=== PATIENT | female | born 1955 | race Caucasian/White ===

== ENCOUNTER → 2021-02-09 11:33 | Outpatient (CLI) | payer BC, SELFPAY ==
--- NOTE | ~2021-02-09 | XR_ITS ---
EXAMINATION: XR hand LT min 3V INDICATION: Left hand pain, initial encounter TECHNIQUE: Three views of the left hand are obtained. COMPARISON: None available FINDINGS: There is an acute, traumatic, closed, oblique fracture at the palmar base of the first dist al phalanx which extends to the interphalangeal joint and involves greater than 50% of the articular surface. No additional acute osseous findings are evident. There is moderate osteoarthritis at the fi rst carpometacarpal joint. Mild to moderate osteoarthritis is noted in multiple interphalangeal joint s. IMPRESSION: 1. Acute fracture at the palmar base of the first distal phalanx involving greater than 50% of the ar ticular surface. Reviewed, dictated and finalized at location A. IMPRESSION: 1. Acute fracture at the palmar base of the first distal phalanx involving grea ter than 50% of the articular surface.
--- NOTE | ~2021-02-09 | XR_ITS ---
EXAMINATION: XR facial bones min 3V INDICATION: Right-sided facial pain and bruising TECHNIQUE: Four views of the facial bones are obtained on five radiographs. COMPARISON: None available FINDINGS: No definite facial bone fracture is identified. The paranasal sinuses appear to be well aer ated. The soft tissues are unremarkable. The orbits appear to be intact. IMPRESSION: 1. No definite facial fracture identified although sensitivity of radiographs is low. If there is hig h clinical concern for facial fracture, further evaluation with facial CT would be recommended. Reviewed, dictated and finalized at location A. IMPRESSION: 1. No definite facial fracture identified although sensitivity of radiographs i s low. If there is high clinical concern for facial fracture, further evaluatio n with facial CT would be recommended.
== END ==
PROVIDERS: PCP Nurse Practitioner; Visit Provider Nurse Practitioner
DX: M79.642 Pain in left hand (principal); S00.83XA Contusion of other part of head, initial encounter; S62.92XA Unspecified fracture of left hand, initial encounter for closed fracture
CPT/HCPCS: 70150; 73130

== ENCOUNTER → 2021-11-23 14:01 | Outpatient (CLI) | payer MEDICARE, SELFPAY ==
--- NOTE | ~2021-11-23 | MM_ITS ---
EXAMINATION: MM screening miryam BI w christophe HISTORY: Screening TECHNIQUE: Craniocaudal and mediolateral oblique 3-D tomosynthesis images were obtained and synthetic 2-D images were generated. CAD analysis was submitted and interpreted. COMPARISON: No prior mammogram is available for comparison at this institution. BREAST PARENCHYMAL COMPOSITION: There are scattered areas of fibroglandular density. FINDINGS: There is no evidence of suspicious mass, calcification, or architectural distortion to sugg est malignancy in either breast. There has been no suspicious interval change. IMPRESSION: 1. No mammographic evidence of malignancy. 2. Recommend routine screening mammography in one year. BI-RADS Category 1: Negative Reviewed, dictated and finalized at location A.
== END ==
PROVIDERS: PCP Nurse Practitioner; Visit Provider Nurse Practitioner
DX: Z12.31 Encounter for screening mammogram for malignant neoplasm of breast (principal)
CPT/HCPCS: 77063; 77067

== ENCOUNTER 2022-01-22 08:09 | Outpatient (CLI) | payer MEDICARE, SELFPAY ==
--- NOTE | ~2022-01-22 | CT_ITS ---
EXAMINATION: CT abdomen w con INDICATION: Liver mass TECHNIQUE: Computed tomographic images of the abdomen were obtained after the administration of 100 c c of Omnipaque 300 intravenous contrast. The dose-length product (DLP) was 293.10 mGy-cm. Automated e xposure control and iterative reconstruction technique were employed. COMPARISON: 06/20/2014, 10/04/2012 FINDINGS: The lung bases are clear. The heart size is normal. There is a 1.9 x 1.5 cm hypoattenuating mass of liver segment BOBBI which is slightly decreased in size since the comparison examination. Ther e has been no suspicious interval change. Small cysts of the liver are again noted. The spleen, pancr eas, gallbladder, and adrenal glands are normal. Cysts of the kidneys measure up to 7 mm on the right . There is severe lumbar spondylosis. IMPRESSION: 1. Liver mass with slight decrease in size, consistent with a benign mass. No new or suspicious liver mass identified. Reviewed, dictated and finalized at location B. IMPRESSION: 1. Liver mass with slight decrease in size, consistent with a benign mass. No n ew or suspicious liver mass identified.
[2022-01-22 08:29] LABS: Estimated Glomerular Filt Rate > 60
== END 2022-01-22 08:10 | disposition home or self-care (01) ==
PROVIDERS: PCP Nurse Practitioner; Visit Provider Nurse Practitioner
DX: R16.0 Hepatomegaly, not elsewhere classified (principal)
CPT/HCPCS: 74160; Q9967

== ENCOUNTER 2022-03-08 09:30 | Outpatient (RCR) | payer MEDICARE, SELFPAY ==
--- NOTE | 2022-01-13 10:09 | PTOPEVAL ---
PHYSICAL THERAPY INITIAL EVALUATION. Thank you for referring Tisha Cedeno to [facility].? The patient is scheduled to be seen for therapy?1x in 2 weeks. Please review, sign, date and return this plan of care FRANCISCO. I agree with and certify that the following plan of care is medically necessary. Referring Physician Date Attending Provider: Allison Cruz NP *PT Outpatient Evaluation Start: 01/13/22 Evaluation Information Diagnosis lito chronic knee pain, L shoulder/elbow pain Onset 10 year, ~4 months Subjective Information Pt states ~10 years ago she Query Text:As Reported By Patient/ was told she needs a knee Family replacement but was told she needs to put it off as long as she can. She states just recently the knees have impacted her function. Pt states she used to always sleep on her left side, and for a couple of weeks she could not do this because of the pain. She states for a couple of weeks she really lost her function, d/t pain. She states this has improved to where it is not as painful but she still feels a deep pain in the arm. Currently she has elbow pain (medially) and this increases with lifting heavy loads. Pt states she started taking Naproxen on Tuesday and has had progressively decreased pain since. Pain Assessment Left Elbow(s) Reported Pain Level 0 Pain Description Sharp Pain Frequency Acute,Intermittent Lowest Pain Intensity 0 Greatest Pain Intensity 8 Pain Aggravating Factors Lifting Left Shoulder(s) Reported Pain Level 0 Pain Description Aching Pain Radiation Left Elbow Pain Frequency Acute,Intermittent Lowest Pain Intensity 0 Greatest Pain Intensity 7 Pain Aggravating Factors Lifting,Supine Upper Extremity Range of Motion Gross Upper Extremity Range of Motion lito shoulder flexion ~145 Comments lito shoulder abduction ~165 lito elbow flexion ~140 lito wrist flexion with elbow
--- NOTE | 2022-01-26 09:43 | PTOPEVAL ---
PHYSICAL THERAPY PROGRESS REPORT AND UPDATED PLAN OF CARE. Thank you for referring Tisha Cedeno to [facility].? The patient is scheduled to be seen for therapy? 1-2x/week for 4 weeks. Please review, sign, date and return this plan of care FRANCISCO. I agree with and certify that the following plan of care is medically necessary. Referring Physician Date Attending Provider: Allison Cruz NP Evaluation Information Diagnosis lito chronic knee pain, L shoulder/elbow pain Onset 10 year, ~4 months Subjective Information Pt states her shoulder and Query Text:As Reported By Patient/ elbow hurt about the same it Family hurts when it hurts . She states her exercises do not bother her but it still hurts to lay on her shoulder or to pick her grandkids up. She reports the same intensity of pain. She states her shoulder and elbow have become tolerable enough for her to focus on at home. She continues to have knee pain and would like to focus on this. Pt states she has had knee pain for close to 12+ years. She states this is a chronic issue. She states ambulating stairs and getting in/out of a tall truck cause her the most pain. Pain Assessment Bilateral Knee(s) Reported Pain Level 0 Greatest Pain Intensity 9 Left Elbow(s) Reported Pain Level 0 Greatest Pain Intensity 4 Pain Aggravating Factors Lifting Left Shoulder(s) Reported Pain Level 0 Greatest Pain Intensity 4 Pain Aggravating Factors Lifting,Supine Upper Extremity Range of Motion Gross Upper Extremity Range of Motion lito shoulder flexion ~145 Comments lito shoulder abduction ~165 lito elbow flexion ~140 lito wrist flexion with elbow straight ~70 lito wrist flexion with elbow bent ~80 lito wrist extension ~90 Lower Extremity Range of Motion Gross Lower Extremity Range of Motion L knee 0 - 2 - 115 Comments R knee 0 - 120 Lower Extremity Muscle Strength Testing Gross Lower Extremity Strength lito hip flexion 5/5 ltio knee flexion/extension 5/5
--- NOTE | 2022-02-22 08:58 | PCPTNOTE ---
Patient called & cancelled scheduled progress report this date due to a out of town family emergency. She has been rescheduled.
--- NOTE | 2022-03-08 10:08 | PTOPEVAL ---
PHYSICAL THERAPY PROGRESS REPORT AND DISCHARGE SUMMARY. Thank you for referring Tisha Cedeno to [facility].? The patient is to be discharged from skilled therapy services at this time. Please review, sign, date and return this plan of care FRANCISCO. I agree with and certify that the following plan of care is medically necessary. Referring Physician Date Attending Provider: Allison Cruz NP *PT Outpatient Evaluation Start: 01/13/22 Evaluation Information Diagnosis lito chronic knee pain, L shoulder/elbow pain Onset 10 year, ~4 months Subjective Information Pt states her knees are doing Query Text:As Reported By Patient/ fairly well. She states she Family got a cortisone shot in her L knee and this seemed to help a lot. Pt states they still hurt and cause her to walk slower than usual. She reports fair compliance with her HEP. Pt states she was able to tack picker her granddaughter and sleep on her L side without an increase in pain Pain Assessment Self Report Pain Assessment Bilateral Knee(s) Reported Pain Level 4 Pain Description Aching Greatest Pain Intensity 4 Left Elbow(s) Reported Pain Level 0 Greatest Pain Intensity 2 Left Shoulder(s) Reported Pain Level 1 Greatest Pain Intensity 3 Upper Extremity Range of Motion Gross Upper Extremity Range of Motion lito shoulder flexion ~145 Comments lito shoulder abduction ~165 lito elbow flexion ~140 lito wrist flexion with elbow straight ~70 lito wrist flexion with elbow bent ~80 lito wrist extension ~90 Lower Extremity Range of Motion General Lower Extremity Range of Motion L knee 0 - 2 - 120 Comments R knee 0 - 120 Lower Extremity Muscle Strength Testing General Lower Extremity Strength lito hip flexion 5/5 lito knee flexion/extension 5/5 - able to pick something up from ground level - during functional squat there is a weight shift to the L. Upper Extremity Muscle Strength Testing General Upper Extremity Strength WFL/Left,WFL/Right Gross Upper Extremity Strength Comments lito shoulder motion grossly 5/5 lito elbow motion grossly 5/5 lito wrist motion grossly 4+/5 Palpation Assessment Palpation
== END 2022-03-23 11:56 | disposition home or self-care (01) ==
LOC: ANHHIPT 09:30
PROVIDERS: PCP Nurse Practitioner; Visit Provider Nurse Practitioner
DX: M25.561 Pain in right knee (principal); M25.562 Pain in left knee; M25.512 Pain in left shoulder; M25.522 Pain in left elbow
CPT/HCPCS: 97110; 97112; 97140; 97161; 97530

== ENCOUNTER 2022-03-12 12:29 | Outpatient (CLI) | payer MEDICARE, SELFPAY ==
[2022-03-12 19:23] LABS: Basophils Percent Auto 0.8 % (0.2-1.2); Eosinophils Percent Auto 1.1 % (0-4.4); Hematocrit 39.6 % (37.0-47.0); Immature Granulocyte Absolute 0.01 K/mm3 (0.00-0.031); Immature Granulocyte Percent A 0.3 % (0-0.5); Lymphocytes Absolute Auto 1.65 K/mm3 (0.9-3.2); Lymphocytes Percent Auto 46.7 % (18.3-44.2); Mean Corpuscular HGB Conc 32.8 g/dl (32-36); Mean Corpuscular Hemoglobin 29.8 pg (26-34); Mean Corpuscular Volume 90.8 fl (80-100); Monocytes Absolute Auto 0.4 K/mm3 (0.1-0.6); Monocytes Percent Auto 11.3 % (2.6-8.5); Neutrophils Absolute Auto 1.4 K/mm3 (1.3-6.7); Neutrophils Percent Auto 39.8 % (45.5-73.1); Platelet Count Result 228 k/mm3 (150-375); Red Blood Count 4.36 M/mm3 (4.2-5.4); Red Cell Distribution Width 13.1 % (11.5-14.5); White Blood Count 3.5 K/mm3 (4.5-10.0)
[2022-03-12 19:27] LABS: Alanine Aminotransferase 51 U/L (6-35); Albumin Level 4.2 g/dL (3.5-5.1); Alkaline Phosphatase 84 U/L (38-126); Anion Gap 6 mmol/L (8-16); Aspartate Amino Transferase 60 U/L (14-36); Bilirubin,Total 1.4 mg/dL (0.2-1.3); Blood Urea Nitrogen 10 mg/dL (7-17); Calcium 9.5 mg/dL (8.4-10.2); Carbon Dioxide 32 mmol/L (22-30); Chloride 101 mmol/L (98-107); Cholesterol 183 mg/dL (0-200); Estimated Glomerular Filt Rate > 60; Glucose 91 mg/dL (65-110); HDL Direct 57 mg/dL; Potassium 4.3 mmol/L (3.4-5.0); Sodium 139 mmol/L (137-145); Triglycerides 109 mg/dL (<150)
[2022-03-12 19:38] LABS: LDL Cholesterol Direct 83 mg/dL
[2022-03-12 19:47] LABS: Vitamin D 25 Hydroxy 85.2 ng/mL
== END 2022-03-12 12:30 | disposition home or self-care (01) ==
LOC: ANHGOSHLAB 12:34
PROVIDERS: PCP Nurse Practitioner; Visit Provider Nurse Practitioner
DX: E78.5 Hyperlipidemia, unspecified (principal); I10 Essential (primary) hypertension; E55.9 Vitamin D deficiency, unspecified
CPT/HCPCS: 36415; 80053; 80061; 82306; 85025

== ENCOUNTER 2022-05-24 13:58 | Outpatient (CLI) | payer MEDICARE, SELFPAY ==
--- NOTE | ~2022-05-24 | CT_ITS ---
EXAMINATION: CT LE RT wo con DATE: 05/24/2022 15:19 INDICATION: Right knee primary osteoarthritis. Preoperative planning. TECHNIQUE: Computed tomography (CT) of the right right lower limb was performed without intravenous c ontrast. Automated exposure control and iterative reconstruction technique were employed. The dose-le ngth product was 1680.04 mGy-cm. COMPARISON: Right knee radiographs 02/12/2022 FINDINGS: The right hip demonstrates moderate osteoarthritis. Right knee demonstrates severe osteoart hritis of medial compartment and moderate osteoarthritis of lateral and patellofemoral compartments. There is a small knee joint effusion with loose body. There is a ganglion cyst in lateral head of gas trocnemius proximally. IMPRESSION: 1. Severe right knee osteoarthritis. 2. Small knee joint effusion with loose body. 3. Moderate right hip osteoarthritis. Reviewed, dictated and finalized at location A. S C DRIVER
[2022-05-24 17:42] LABS: Hematocrit 40.6 % (37.0-47.0); Hemoglobin 13.8 g/dL (12.0-15.0)
[2022-05-24 17:55] LABS: Albumin Level 4.5 g/dL (3.5-5.1); Estimated Glomerular Filt Rate > 60; Glucose 90 mg/dL (65-110)
== END 2022-05-24 13:59 | disposition home or self-care (01) ==
PROVIDERS: PCP Nurse Practitioner; Visit Provider Orthopaedic Surgery
DX: M17.0 Bilateral primary osteoarthritis of knee (principal); E78.5 Hyperlipidemia, unspecified; R16.0 Hepatomegaly, not elsewhere classified; R74.8 Abnormal levels of other serum enzymes; I10 Essential (primary) hypertension; M25.461 Effusion, right knee; M23.41 Loose body in knee, right knee; M16.11 Unilateral primary osteoarthritis, right hip
CPT/HCPCS: 36415; 73700; 82040; 82565; 82947; 85014; 85018

== ENCOUNTER 2022-05-25 14:40 | Outpatient (CLI) | payer MEDICARE, SELFPAY ==
--- NOTE | 2022-05-25 14:45 | ECG_ITS ---
Measurements Intervals [place] Rate: 66 P: 51 UT: 168 QRS: -1 QRSD: 100 T: 45 QT: 411 QTc: 431 Interpretive Statements SINUS RHYTHM INCOMPLETE RIGHT BUNDLE BRANCH BLOCK BORDERLINE ECG NO PREVIOUS ECG AVAILABLE FOR COMPARISON Electronically Signed On 05-25-2022 16:24:45 PIPING BLOCKER by Chad Benítez D.O.
== END 2022-05-25 14:41 | disposition home or self-care (01) ==
LOC: ANHCARD 14:42
PROVIDERS: PCP Nurse Practitioner; Visit Provider Orthopaedic Surgery
DX: M17.0 Bilateral primary osteoarthritis of knee (principal); I10 Essential (primary) hypertension; E78.5 Hyperlipidemia, unspecified; I45.10 Unspecified right bundle-branch block
CPT/HCPCS: 93005

== ENCOUNTER 2022-08-04 09:52 | Outpatient (CLI) | payer MEDICARE, SELFPAY ==
[2022-08-04 10:59] LABS: Basophils Percent Auto 0.6 % (0.2-1.2); Eosinophils Absolute Auto 0.1 K/mm3 (0-0.3); Eosinophils Percent Auto 1.7 % (0-4.4); Hematocrit 40.6 % (37.0-47.0); Hemoglobin 13.7 g/dL (12.0-15.0); Immature Granulocyte Absolute 0.01 K/mm3 (0.00-0.031); Immature Granulocyte Percent A 0.2 % (0-0.5); Lymphocytes Absolute Auto 1.56 K/mm3 (0.9-3.2); Lymphocytes Percent Auto 33.5 % (18.3-44.2); Mean Corpuscular HGB Conc 33.7 g/dl (32-36); Mean Corpuscular Hemoglobin 30.6 pg (26-34); Mean Corpuscular Volume 90.6 fl (80-100); Mean Platelet Volume 9.7 fl (7.4-10.4); Monocytes Absolute Auto 0.3 K/mm3 (0.1-0.6); Monocytes Percent Auto 7.3 % (2.6-8.5); Neutrophils Absolute Auto 2.6 K/mm3 (1.3-6.7); Neutrophils Percent Auto 56.7 % (45.5-73.1); Platelet Count Result 206 k/mm3 (150-375); Red Blood Count 4.48 M/mm3 (4.2-5.4); Red Cell Distribution Width 12.2 % (11.5-14.5); White Blood Count 4.7 K/mm3 (4.5-10.0)
[2022-08-04 11:07] LABS: Albumin Level 4.3 g/dL (3.5-5.1); Estimated Glomerular Filt Rate > 60; Glucose 96 mg/dL (65-110)
[2022-08-04 11:12] LABS: Urine Cotinine NEGATIVE
[2022-08-05 13:35] LABS: Hemoglobin A1C 5.6 % (<5.7)
== END 2022-08-04 09:53 | disposition home or self-care (01) ==
PROVIDERS: PCP Nurse Practitioner; Visit Provider Orthopaedic Surgery
DX: M17.11 Unilateral primary osteoarthritis, right knee (principal); Z01.818 Encounter for other preprocedural examination
CPT/HCPCS: 80307; 82040; 82565; 82947; 83036; 85025; 87081

== ENCOUNTER 2022-08-23 00:41 | Day surgery (SDC) | payer MEDICARE, SELFPAY ==
--- NOTE | 2022-08-04 09:47 | PC.NURSE ---
PRE-OP INSTRUCTIONS, PLEASE READ CAREFULLY Report to the Outpatient Waiting Room, entrance under the green pavilion located off [facility], at time _1000_ on date _08/23/22_. Planned Procedure Time: _1200_. PACK A SMALL OVERNIGHT BAG AND LEAVE IN THE CAR ALONG WITH YOUR WALKER Time changes happen often and if your time is changed the preop area will call you the afternoon before. - You and your visitor will be asked to self-screen and do not enter if you have any COVID symptoms. - Only one visitor is requested with a max of two and NO children visitors are allowed at this time. - The patient visitor may be requested to leave or wait in car when not with patient due to distancing restrictions. - A mask is optional within the hospital. -VISITING HOURS 8AM-8PM Patients may have clear liquids (water, carbonated beverages, clear teas, apple juice) until 3 hours prior to surgery (0900 AM) with a maximum of 20 ounces. - No food from midnight until time of surgery Take the following medications with a SIP of water the morning of surgery: _NONE_ Medications to discontinue per DR. ABARCA - _MULTIVITAMIN 7 DAYS PRIOR TO SURGERY, Date to take last dose 08/15/22_ Medications to discontinue per ANESTHESIA - _PROBIOTIC 3 DAYS PRIOR TO SURGERY, Date to take last dose 08/19/22_ Please no make-up, nail portuguese, hairspray, perfume, deodorant, or body powder the day of surgery. No jewelry (including any body piercings) or valuables the day of surgery, leave them at home. Please take a shower or bath the night before, or the morning of, surgery with an antibacterial soap. Wear comfortable, loose fitting clothing. - Jewelry must be removed prior to entering the operating room. Rings and piercings that are not removed may be cut off. - The hospital will not accept responsibility for valuables. - Please leave all valuables, including medications, at home the day of surgery. If you are going home after surgery, a licensed wagon driver must drive you home. - NO public transportation without another adult if you receive anesthesia. - We recommend that an adult stay with you for 24 hours following discharge. - We also recommend that you do not drive, make important decision, drink alcoholic beverages, or take any drugs that were not prescribed by your health care provider for at least 24 hours after your discharge time. Follow any additional instructions given to you from your surgeon. If you or anyone in your household have experienced Covid symptoms in the past week, please notify your surgeon or the nurse liaison at the phone number below for possible testing. Instructions given to _PATIENT_and asked if any additional questions and then verbalized understanding. Patient advised to call surgeon office or pre surgery nurse liaison [phone] if any additional questions.
[2022-08-04 10:15] VITALS: BP 120/76; PULSE 68; RESP 18; TEMP 36.8; O2SAT 100; BMI 29.8
[2022-08-23] VITALS (13 sets, daily range): BP systolic 81–150; BP diastolic 51–93; PULSE 56–73; RESP 10–20; TEMP 35.8–36.6; O2SAT 98–100
--- NOTE | ~2022-08-23 | XR_ITS ---
EXAMINATION: XR knee RT 2V DATE: 08/23/2022 14:46 INDICATION: Total right knee arthroplasty. Postop. TECHNIQUE: 2 views of right knee were obtained. COMPARISON: None. FINDINGS: There is a total right knee arthroplasty with patellar resurfacing in near-anatomic alignme nt. No fracture. There is gas in the knee joint and soft tissues, consistent with recent surgery. IMPRESSION: 1. Total right knee arthroplasty in near-anatomic alignment. Reviewed, dictated and finalized at location A. CENTER DIRECTOR
[2022-08-23] MEDS: ACETAMINOPHEN 500 MG TABLET 1000 MG PO (10:18)
[2022-08-23] MEDS: LACTATED RINGERS 1,000 ML 30 ML IV CONT ×2 (10:35→14:51)
--- NOTE | 2022-08-23 11:26 | WPDANESEPPF ---
Anes - Initial Pre Proc Eval Procedure: Operation Date: 08/23/22 12:00 Proposed Procedures p Right Custom Total Knee Arthroplasty - Uvaldo Flowers MD Date/Time: 08/23/22 11:26 Surgeon: Uvaldo Flowers MD Pre Op Diagnosis: primary OA right knee Patient Data Age: 67 Gender: F Height: 1.61 m Weight: 76.65 kg Last Vital Signs Temp 36.5 C 08/23/22 10:56 Pulse 73 08/23/22 10:56 Resp 20 08/23/22 10:56 BP 129/88 08/23/22 10:56 Pulse Ox 98 08/23/22 10:56 O2 Del Method Room Air 08/23/22 10:56 Allergies Allergy/AdvReac Type Severity Reaction Status Date / Time lisinopril Allergy Unknown dry cough Verified 08/23/22 10:19 Home Medications Medication Instructions Recorded Confirmed Type multivitamin (Multiple Vitamins 1 tablet PO DAILY 02/09/21 08/23/22 History tablet) atorvastatin 10 mg tablet 15 mg PO DAILY 01/11/22 08/23/22 History losartan 25 mg tablet 25 mg PO DAILY #90 tabs 05/10/22 08/23/22 Rx ropinirole 1 mg tablet 2 mg PO DAILY #180 tabs 06/08/22 08/23/22 Rx Probiotic 1 tab-cap EVERY OTHER DAY 08/04/22 08/23/22 History cholecalciferol (vitamin D3) 10 10 mcg PO WEEKLY 08/04/22 08/23/22 History mcg (400 unit) capsule Laboratory Tests 08/23/22 10:17 Blood Type O Positive Antibody Screen Pending Patient hx anesthesia problems: none Family hx anesthesia problems: none Results Review: All pre-operative results and documents have been reviewed as part of the pre-operative evaluation. [facility] Past Medical History Medical History Essential (primary) hypertension Hyperlipidemia, unspecified Restless legs syndrome Spinal curvature Surgical History Surgical History H/O hernia repair (~2004) History of hand surgery (~02/2021) Family History Family History Father Family history of arthritis Hypertension Family history of Parkinson's disease Mother Family history of arthritis Family history of elevated blood lipids Sibling Family history of seizure disorder Family history of arthritis Grandparent Depression Family history of malignant neoplasm Family history of Parkinson's disease Other Family history of congenital heart disease Social History Social History Smoking status: Never smoker Second hand tobacco smoke exposure: No Additional smoking assessment comments: PT DENIES ALL FORMS OF TOBACCO USE Alcohol intake: current Drinks per week: 1 Substance use: never Substance use type: does not use Lack of Transportation: No Lack of Food: Never True Current Housing: I Have Housing Concerned About Future Housing: No Difficulty Paying Gas/Electric Bills: No Difficulty Paying for Meds: No Currently Unemployed: No Education: Associate Degree Difficulty w/ Childcare or Family Care: No Living arrangements: with family Additional living arrangements comments: Occupation/Education: retired Gender identity (if verbalized by the patient): Female Spiritual care concerns: No Anes - Eval Final PreProcedure Day of Procedure 08/23/22 11:26 Patient weight: overweight Heart: regular rate and rhythm Lungs: clear to auscultation Airway: Mallampati scale class II Neurological: alert and oriented Last oral intake: >/= 8 hours ASA classification: II Emergent: no Anesthetic plan: proceed Anesthesia type and monitoring: general LMA and standard monitoring Results Review: All pre-operative results and documents have been reviewed as part of the pre-operative evaluation. Informed Consent: The patient's anesthetic plan and its attendant risks and benefits were discussed with the patient/family/POA. Questions were solicited and answers provided to the lolitaacti
--- NOTE | 2022-08-23 11:30 | WPDHPUPDATE1 ---
History and Physical Update Update Date/Time: 08/23/22 11:30 History and Physical has been reviewed, including an updated exam of the patient. There are NO changes in the patient's condition. Risks, benefits, and alternatives have been discussed and questions answered. Patient agrees to proceed with procedure.
[2022-08-23] MEDS: TRANEXAMIC ACID 1,000MG/ISO100 1,000 MG/100 ML BAG 200 MG IVPB (12:00)
--- NOTE | 2022-08-23 12:11 | WPDANESPNB ---
Anes - Peripheral Nerve Block Date/Time: 08/23/22 12:11 I have discussed with the patient/family/POA the placement of a peripheral nerve block for post-operative pain management, including associated risks, benefits, complications, and side effects. Alternative methods of post-operative analgesia were detailed. Questions were solicited and answers provided to the satisfaction of the patient/family/POA. Time-Out: A pre-procedural Time-Out was completed immediately before starting the procedure and confirmed: Patient Identification, Site, Procedure, Patient Position and the Availability of Requisite Equipment. Clinical Indications: Acute post-operative pain management requested by the operative surgeon. Nerve Block Insertion Note Anes-nerve block: adductor canal right Patient position: supine Skin prep: chlorhexidine Needle: 22 gauge, stimulating, insulated echogenic needle. Needle length: 80 mm Technique: ultrasound Technique comment: mid2mg fent 100mcg Injectate: bupivacaine 0.5% with epi 5 mcg/ml (30ml no epi ) and dexamethasone (mg) (4) Observations: tolerated well Complications: none Procedure start time:: 1201 Procedure end time:: 1206
[2022-08-23] MEDS: ceFAZolin 2 GM/D5W 50 ML 2 GM/50 ML BAG IVPB ×2 (12:12→20:17)
[2022-08-23] MEDS: GENTAMICIN BONE CEMENT REFOBACIN 1 EACH TOPICAL (13:28)
--- NOTE | 2022-08-23 15:24 | W.PM.PROC2 ---
Procedure Note - Detailed Date of Procedure 08/23/22 Pre-op Diagnosis primary OA right knee Post-op Diagnosis Same Procedure Performed Total knee arthroplasty, right Surgeon Uvaldo Flowers MD Merchandising Execution Associate Cha Nayak PA-C Anesthesia General and Regional (Subsartorial block.) Findings Good bone quality. Moderate medial release. PS imprint knee. Description of Procedure Preoperative antibiotics were given. The limb was prepped and draped in the usual sterile fashion with a well-padded tourniquet high on the thigh. The limb was exsanguinated and the tourniquet inflated to 300 mmHg, during exposure, then released. A longitudinal incision was created just medial to the patella. A trivector approach to the knee was performed. Arthrotomy was taken down through the joint capsule. No significant releases were initially taken. The femur was exposed and the F1 jig was applied. The coring tool was used to remove the cartilage for the F2 jig to sit flush with the bone. The jig was pinned and the distal cut carefully taken. Caliper measurements confirmed appropriate bony resections according to the preoperative templated plan. The F4 cutting jig for the femur was applied, at the standard rotation. The AP and anterior chamfer cuts were taken. The F5 jig was applied and the posterior chamfer cuts were taken, followed by the box cut. The tibia was prepared using the T1 jig, after removing cartilage for the jig contact points. Proper alignment was checked with the alignment enid. The tibia was cut using the T1u guide. Gap balancing was performed. Gap measurements were taken and the knee was trialed. Excellent alignment and soft tissue balancing was confirmed. The posterior cruciate ligament was recessed along the proximal tibia. The patella was cut for resurfacing. Three lug holes were drilled. Meniscal remnants were removed. The trial components were assembled. Excellent range of motion and proper soft tissue balancing were confirmed throughout the full range of motion. Patellar tracking was excellent. The knee was copiously irrigated periodically throughout the procedure. The real implants were cemented into position. Excess cement was carefully removed. The wound was closed in layers with interrupted #1 Vicryl suture, 2-0 strata fix suture, 0 strata fix suture, 2-0 strata fix suture. Steri-Strips placed on the skin with the knee flexed. Sterile bulky dressing applied. The patient was brought to the recovery room in stable condition. There were no complications. Physician oral surgery assistant, Cha Nayak PA-C, required for surgery; including patient positioning, draping, tissue retraction, maintaining instrument position, wound closure, and dressing placement. Implants Conformis Imprint total knee arthroplasty. Cemented. Posterior stabilized 6mm insert. 32 mm round patella. Estimated Blood Loss -100.0 Drains No Complications No immediate complications Condition Stable Disposition PACU
--- NOTE | 2022-08-23 16:30 | ADMGEN ---
This patient, Tisha Cedeno, was admitted to Medical Room 249-01. Patient/family oriented to hospital policies and general routines including ID bracelet, bed and alarms, visiting hours, pain management, procedures, bathroom and other care routines, personal items, smoking policy, room service/diet, and visiting hours. Information on how to activate the Rapid Response Team has been discussed. Patient/Family are encouraged to report perceived risks to care and to ask questions if they do not understand what they are told or what they should do.
[2022-08-23] MEDS: MELOXICAM 7.5 MG TABLET PO (18:16)
[2022-08-23] MEDS: rOPINIRole HCL 1 MG TABLET 2 MG PO (18:16)
[2022-08-23] MEDS: ASPIRIN 81 MG ENTERIC TABLET PO (18:17)
[2022-08-23] MEDS: FAMOTIDINE 20 MG TABLET PO (20:17)
[2022-08-24 00:06] VITALS: BP 122/65; PULSE 68; RESP 20; TEMP 36.2; O2SAT 98
[2022-08-24 03:58] VITALS: BP 125/67; PULSE 65; RESP 20; TEMP 36; O2SAT 99
[2022-08-24] MEDS: ceFAZolin 2 GM/D5W 50 ML 2 GM/50 ML BAG IVPB ×2 (04:45→11:32)
[2022-08-24 05:47] LABS: Basophils Percent Auto 0.2 % (0.2-1.2); Hematocrit 34.4 % (37.0-47.0); Hemoglobin 11.8 g/dL (12.0-15.0); Immature Granulocyte Absolute 0.06 K/mm3 (0.00-0.031); Immature Granulocyte Percent A 0.5 % (0-0.5); Lymphocytes Absolute Auto 1.02 K/mm3 (0.9-3.2); Lymphocytes Percent Auto 8.2 % (18.3-44.2); Mean Corpuscular HGB Conc 34.3 g/dl (32-36); Mean Corpuscular Hemoglobin 30.6 pg (26-34); Mean Corpuscular Volume 89.1 fl (80-100); Mean Platelet Volume 10.1 fl (7.4-10.4); Monocytes Absolute Auto 0.7 K/mm3 (0.1-0.6); Monocytes Percent Auto 5.4 % (2.6-8.5); Neutrophils Absolute Auto 10.6 K/mm3 (1.3-6.7); Neutrophils Percent Auto 85.7 % (45.5-73.1); Platelet Count Result 204 k/mm3 (150-375); Red Blood Count 3.86 M/mm3 (4.2-5.4); Red Cell Distribution Width 11.9 % (11.5-14.5); White Blood Count 12.4 K/mm3 (4.5-10.0)
[2022-08-24 06:10] LABS: Anion Gap 2 mmol/L (8-16); Blood Urea Nitrogen 11 mg/dL (7-17); Calcium 8.3 mg/dL (8.4-10.2); Carbon Dioxide 27 mmol/L (22-30); Chloride 103 mmol/L (98-107); Estimated CRCL calculation 78 ml/min; Estimated Glomerular Filt Rate > 60; Glucose 131 mg/dL (65-110); Potassium 3.8 mmol/L (3.4-5.0); Sodium 132 mmol/L (137-145)
--- NOTE | 2022-08-24 07:50 | WPDANESPN ---
Anes - Prog Note Post-Op Date/Time: 08/24/22 07:50 Cardiovascular status: normal Respiratory status: normal Airway patency: baseline Mental status: baseline Post-Op hydration status: normal Vital Signs: Last Vital Signs Temp 36.0 C L 08/24/22 03:58 Pulse 65 08/24/22 03:58 Resp 20 08/24/22 03:58 BP 125/67 08/24/22 03:58 Pulse Ox 99 08/24/22 03:58 O2 Del Method Room Air 08/23/22 16:10 O2 Flow Rate 8 08/23/22 15:25 Pain Score (VAS): 08/27 I/O: Intake & Output 08/23/22 08/23/22 08/24/22 15:59 23:59 07:59 Intake Total 1150 590 740 Output Total 500 Balance 1150 590 240 Laboratory Tests 08/24/22 05:27 08/24/22 05:27 08/23/22 08/24/22 08/24/22 10:17 05:27 05:27 WBC 12.4 H RBC 3.86 L Hgb 11.8 L Hct 34.4 L MCV 89.1 MCH 30.6 MCHC 34.3 RDW 11.9 Plt Count 204 MPV 10.1 Immature Gran % (Auto) 0.5 Neut % (Auto) 85.7 H Lymph % (Auto) 8.2 L [place] % (Auto) 5.4 Eos % (Auto) 0.0 Baso % (Auto) 0.2 Lymph # (Auto) 1.02 [place] # (Auto) 0.7 H Eos # (Auto) 0.0 Baso # (Auto) 0.0 Abs Immat Gran (auto) 0.06 H Absolute Neuts (auto) 10.6 H Absolute Nucleated RBC 0.0 Nucleated RBC % 0.0 Sodium 132 L Potassium 3.8 Chloride 103 Carbon Dioxide 27 Anion Gap 2 L BUN 11 Creatinine 0.60 L Estim Creat Clear Calc 78 Estimated GFR > 60 Glucose 131 H Calcium 8.3 L Blood Type O Positive Antibody Screen Negative Post-procedural complaints: none Patient Feedback: Patient satisfied with anesthetic care.
[2022-08-24] MEDS: ASPIRIN 81 MG ENTERIC TABLET PO (09:34)
[2022-08-24] MEDS: MELOXICAM 7.5 MG TABLET PO (09:34)
[2022-08-24] MEDS: FAMOTIDINE 20 MG TABLET PO (09:34)
--- NOTE | 2022-08-24 10:17 | PM.DS ---
DS: Admitting Diagnosis Discharge Date 08/24/22 Admitting Diagnosis OA knee Right DS: Discharge Diagnosis Discharge Diagnosis (1) Status post total right knee replacement: Code(s): Z96.651 - Presence of right artificial knee joint Status: Acute Assessment and Plan: Postop day 1: Right total knee arthroplasty. Patient tolerated procedure well. No complications. Pain manageable with pain medication. No numbness or tingling. We had a lengthy discussion regarding postoperative wound care, limitations, expectations, and exercises. Patient shows good understanding. She has had initial physical therapy and is tolerating it well. DVT prophylaxis: 81 mg baby aspirin b.i.d. for 14 days. Pain medication: Percocet. Meloxicam. Prednisone. Patient has followup appointment with Dr. Flowers in 3 weeks. DS: Summary Hospital Course Reason for hospitalization: Total knee arthroplasty Hospital Course: Patient tolerated procedure well. Has had initial PT/OT. No complications. Pain well managed. Status at Discharge Functional status at discharge: uses cane/walker Overall status at discharge: patient is progressing back to baseline Time Spent with Patient Time attestation: Total time spent providing and/or coordinating discharge services: Exam Narrative: Overweight 67 y/o female. Resting comfortably in chair. No acute distress. A&O x3. Wearing compression socks bilaterally. Dressing intact with no drainage. Mild swelling. No ecchymosis. No erythema. No hematoma. Good early range of motion. Calf nontender. Neurologic status intact. No varicosities. Distal pulses palpable. DS: Data Data Completed and Pending Labs on day of discharge: Labs from last 24 hours 08/24/22 08/24/22 08/23/22 05:27 05:27 10:17 WBC 12.4 H RBC 3.86 L Hgb 11.8 L Hct 34.4 L MCV 89.1 MCH 30.6 MCHC 34.3 RDW 11.9 Plt Count 204 MPV 10.1 Immature Gran % (Auto) 0.5 Neut % (Auto) 85.7 H Lymph % (Auto) 8.2 L [place] % (Auto) 5.4 Eos % (Auto) 0.0 Baso % (Auto) 0.2 Lymph # (Auto) 1.02 [place] # (Auto) 0.7 H Eos # (Auto) 0.0 Baso # (Auto) 0.0 Abs Immat Gran (auto) 0.06 H Absolute Neuts (auto) 10.6 H Absolute Nucleated RBC 0.0 Nucleated RBC % 0.0 Sodium 132 L Potassium 3.8 Chloride 103 Carbon Dioxide 27 Anion Gap 2 L BUN 11 Creatinine 0.60 L Estim Creat Clear Calc 78 Estimated GFR > 60 Glucose 131 H Calcium 8.3 L Blood Type O Positive Antibody Screen Negative Discharge Plan Discharge Patient Disposition: Home, Self-Care Discharge Instructions: See green instruction sheets Stand Alone Forms: General Discharge Instructions Follow-up/Referrals: Cha Nayak PA [Physician Fabric Worker] - Discharge Medications: New meloxicam 15 mg tablet 15 mg PO DAILY Qty: 30 0RF Rx Instructions: Cut in half. Take 1/2 in morning and 1/2 at night. Take with food. Stop if stomach upset. prednisone 5 mg tablet 5 mg PO DAILY 21 Days Qty: 21 0RF aspirin 81 mg tablet,delayed release (DR/EC) 81 mg PO BID 14 Days Qty: 28 0RF oxycodone-acetaminophen 5-325 mg tablet 1 - 2 tablet PO Q4-6H MDD 6 PRN (Reason: pain) Qty: 30 0RF Continued atorvastatin 10 mg tablet 15 mg PO DAILY Label Comments: HS multivitamin [Multiple Vitamins] Tablet 1 tablet PO DAILY cholecalciferol (vitamin D3) 10 mcg (400 unit) capsule 10 mcg PO WEEKLY Label Comments: TAKES ON SUNDAYS Probiotic 1 tab-cap EVERY OTHER DAY losartan 25 mg tablet 25 mg PO DAILY Qty: 90 1RF Label Comments: HS ropinirole 1 mg tablet 2 mg PO DAILY Qty: 180 0RF Label Comments: HS - ONE TAB @ 1815 & ONE TAB @ 6598
[2022-08-24 10:20] VITALS: BP 125/97; PULSE 73; RESP 20; TEMP 36.6; O2SAT 100
[2022-08-24] MEDS: ACETAMINOPHEN 500 MG TABLET 1000 MG PO (11:30)
== END 2022-08-24 13:00 | disposition home or self-care (01) ==
LOC: ANHSURGERY 13:49 → ANH2MED 16:17
PROVIDERS: Physician Assistant Surgical; PCP Nurse Practitioner; Visit Provider Orthopaedic Surgery
PROC: (CPT 27447; principal; 2022-08-23 12:00)
DX: M17.11 Unilateral primary osteoarthritis, right knee (principal); G89.18 Other acute postprocedural pain; I10 Essential (primary) hypertension; E78.5 Hyperlipidemia, unspecified; G25.81 Restless legs syndrome
CPT/HCPCS: 27447; 64449; 36415; 73560; 80048; 85025; 86850; 86900; 86901; 97110; 97161; 97165; 97530; 97535; A9270; C1713; C1776; J0131; J0171; J0690; J1100; J1885; J2250; J2270; J2405; J2704; J2795; J3010; J7120; J7512

== ENCOUNTER 2022-09-17 16:29 | Outpatient (CLI) | payer MEDICARE, SELFPAY ==
--- NOTE | ~2022-09-17 | CT_ITS ---
EXAMINATION: CT LE LT wo con DATE: 09/17/2022 17:02 INDICATION: Left knee osteoarthritis. TECHNIQUE: Computed tomography (CT) of the left lower limb was performed without intravenous contrast . Automated exposure control and iterative reconstruction technique were employed. The dose-length pr oduct was 1725.33 mGy-cm. COMPARISON: None FINDINGS: Left hip demonstrates normal bone alignment. No fracture. There is moderate left hip osteoa rthritis. Left knee demonstrates severe osteoarthritis of the medial compartment, mild osteoarthritis of lateral compartment, moderate osteoarthritis of the patellofemoral compartment. There is a small knee joint effusion. There is a punctate loose body in the suprapatellar bursa. There is subcutaneous edema in the lower leg and foot. IMPRESSION: 1. Severe left knee osteoarthritis. 2. Small left knee joint effusion with punctate loose body. 3. Moderate left hip osteoarthritis. Reviewed, dictated and finalized at location A. AND POULTRY INSPECTOR
== END 2022-09-17 16:30 | disposition home or self-care (01) ==
LOC: ANHIMG 16:32
PROVIDERS: PCP Nurse Practitioner; Visit Provider Physician Assistant Surgical
DX: M17.12 Unilateral primary osteoarthritis, left knee (principal); M25.462 Effusion, left knee; M23.42 Loose body in knee, left knee; M16.12 Unilateral primary osteoarthritis, left hip
CPT/HCPCS: 73700

== ENCOUNTER 2022-11-06 09:05 | Outpatient (CLI) | payer MEDICARE, SELFPAY ==
[2022-11-06 10:33] LABS: Hematocrit 41.4 % (37.0-47.0); Hemoglobin 13.6 g/dL (12.0-15.0)
[2022-11-06 10:56] LABS: Albumin Level 4.2 g/dL (3.5-5.1); Estimated Glomerular Filt Rate > 60
[2022-11-06 10:57] LABS: Glucose 95 mg/dL (65-110)
== END 2022-11-06 09:06 | disposition home or self-care (01) ==
PROVIDERS: Physician Assistant Surgical; PCP Nurse Practitioner; Visit Provider Orthopaedic Surgery
DX: M17.12 Unilateral primary osteoarthritis, left knee (principal); E78.5 Hyperlipidemia, unspecified; R16.0 Hepatomegaly, not elsewhere classified
CPT/HCPCS: 36415; 82040; 82565; 82947; 85014; 85018

== ENCOUNTER 2022-12-08 10:25 | Outpatient (CLI) | payer MEDICARE, SELFPAY ==
[2022-12-08 11:54] LABS: Basophils Percent Auto 0.8 % (0.2-1.2); Eosinophils Absolute Auto 0.1 K/mm3 (0-0.3); Eosinophils Percent Auto 1.5 % (0-4.4); Hematocrit 41.4 % (37.0-47.0); Hemoglobin 13.8 g/dL (12.0-15.0); Immature Granulocyte Absolute 0.01 K/mm3 (0.00-0.031); Immature Granulocyte Percent A 0.2 % (0-0.5); Lymphocytes Absolute Auto 1.84 K/mm3 (0.9-3.2); Lymphocytes Percent Auto 35.3 % (18.3-44.2); Mean Corpuscular HGB Conc 33.3 g/dl (32-36); Mean Corpuscular Hemoglobin 29.7 pg (26-34); Mean Platelet Volume 10.2 fl (7.4-10.4); Monocytes Absolute Auto 0.4 K/mm3 (0.1-0.6); Monocytes Percent Auto 7.3 % (2.6-8.5); Neutrophils Absolute Auto 2.9 K/mm3 (1.3-6.7); Neutrophils Percent Auto 54.9 % (45.5-73.1); Platelet Count Result 232 k/mm3 (150-375); Red Blood Count 4.65 M/mm3 (4.2-5.4); Red Cell Distribution Width 11.9 % (11.5-14.5); White Blood Count 5.2 K/mm3 (4.5-10.0)
[2022-12-08 12:08] LABS: Hemoglobin A1C 5.5 % (<5.7)
[2022-12-08 13:02] LABS: Urine Cotinine NEGATIVE
== END 2022-12-08 10:26 | disposition home or self-care (01) ==
LOC: ANHSURGERY 10:31
PROVIDERS: PCP Family Medicine; Visit Provider Orthopaedic Surgery
DX: M17.12 Unilateral primary osteoarthritis, left knee (principal); Z01.818 Encounter for other preprocedural examination
CPT/HCPCS: 80307; 83036; 85025; 86850; 86900; 86901; 87081

== ENCOUNTER 2022-12-14 00:57 | Day surgery (SDC) | payer MEDICARE, SELFPAY ==
--- NOTE | 2022-12-03 09:57 | PC.NURSE ---
Report to the Outpatient Waiting Room, entrance under the green pavilion located off [facility], at time __0600 on date __12/14/22 . Planned Procedure Time: _07 . Time changes happen often and if your time is changed the preop area will call you the afternoon before. - You and your visitor will be asked to self-screen and do not enter if you have any COVID symptoms. - A mask is optional within the hospital at this time. Patients may have clear liquids (water, carbonated beverages, clear teas, apple juice) until 3 hours prior to surgery with a maximum of 20 ounces. - No food from midnight until time of surgery - Infants may have breast milk until 4 hours before surgery, infant formula 6 hours prior to surgery. - Children will be allowed to drink immediately following surgery. If applicable, please bring a bottle or sippy cup to assist with drinking. Juice, water, soda, and popsicles are readily available. For infants on formula, please bring formula the day of surgery. Pacifiers are allowed. Take the following medications with a SIP of water the morning of surgery: ____NONE DO NOT STOP ANY OF YOUR OTHER PRESCRIPTION MEDICATIONS PRIOR TO SURGERY ?EXCEPT THE FOLLOWING Medications to discontinue per physician IBUPROFEN 7 DAYS PRE OP.LAST DOSE 12/06/22 .MULTIVITAMINS AND PROBIOTIC 3 DAYS PRE OP.LAST DOSE 12/10/22 Please no make-up, nail belarusian, hairspray, perfume, deodorant, or body powder the day of surgery. No jewelry (including any body piercings) or valuables the day of surgery, leave them at home. Please take a shower or bath the night before, or the morning of, surgery with an antibacterial soap. Wear comfortable, loose fitting clothing. Children are encouraged to wear pajamas. - Jewelry must be removed prior to entering the operating room. Rings and piercings that are not removed may be cut off. - The hospital will not accept responsibility for valuables. - Please leave all valuables, including medications, at home the day of surgery. If you are going home after surgery, a licensed regional owner operator truck driver must drive you home. - NO public transportation without another adult if you receive anesthesia. - We recommend that an adult stay with you for 24 hours following discharge. - We also recommend that you do not drive, make important decision, drink alcoholic beverages, or take any drugs that were not prescribed by your health care provider for at least 24 hours after your discharge time. For Pediatric surgeries, we recommend two adults accompany the child home. Follow any additional instructions given to you from your surgeon. If you or anyone in your household have experienced Covid symptoms in the past week, please notify your surgeon or the nurse liaison at the phone number below for possible testing. Telephone instructions given to ___PATIENT and asked if any additional questions and then verbalized understanding. Patient advised to call surgeon office or pre surgery nurse liaison [phone] if any additional questions.
[2022-12-03 10:08] VITALS: BMI 28.3
[2022-12-14] VITALS (16 sets, daily range): BP systolic 113–148; BP diastolic 67–84; PULSE 62–87; RESP 11–20; TEMP 36.2–36.6; O2SAT 93–100; BMI 28.7
--- NOTE | ~2022-12-14 | XR_ITS ---
Left Knee Technique: Portable AP and crosstable lateral views Clinical History: Status post TKR Findings: Patient is status post total knee replacement. Orthopedic hardware alignment appears anatom ic. No hardware complication is evident. Subcutaneous emphysema and swelling is likely postoperative in nature. No acute osseous fracture is seen. Impression: Status post total knee replacement, without evidence of hardware complication. Reviewed, dictated and finalized at location . Impression: Status post total knee replacement, without evidence of hardware complication.
--- NOTE | 2022-12-14 06:45 | WPDANESEPPF ---
Anes - Initial Pre Proc Eval Procedure: Operation Date: 12/14/22 07:30 Proposed Procedures p Left Custom Total Knee Arthroplasty - Uvaldo Flowers MD Date/Time: 12/14/22 06:45 Surgeon: Uvaldo Flowers MD Pre Op Diagnosis: primary OA left knee Patient Data Age: 67 Gender: F Height: 1.63 m Weight: 74.85 kg Allergies Allergy/AdvReac Type Severity Reaction Status Date / Time lisinopril Allergy Unknown dry cough Verified 12/10/22 15:24 Home Medications Medication Instructions Recorded Confirmed Type multivitamin (Multiple Vitamins 1 tablet PO DAILY 02/09/21 12/10/22 History tablet) Probiotic 1 tab-cap PO EVERY OTHER DAY 08/04/22 12/10/22 History atorvastatin 20 mg tablet 20 mg PO DAILY #90 tabs 10/20/22 12/10/22 Rx losartan 25 mg tablet 25 mg PO DAILY #90 tabs 11/05/22 12/10/22 Rx ropinirole 1 mg tablet 2 mg PO DAILY #180 tabs 11/25/22 12/10/22 Rx ibuprofen 400 mg tablet 400 mg PO Q6H PRN Pain 12/03/22 12/10/22 History Patient hx anesthesia problems: none Family hx anesthesia problems: none Results Review: All pre-operative results and documents have been reviewed as part of the pre-operative evaluation. [facility] Past Medical History Medical History Essential (primary) hypertension Hyperlipidemia, unspecified Restless legs syndrome Spinal curvature Surgical History Surgical History H/O hernia repair (~2004) History of hand surgery (~02/2021) History of total right knee replacement (~08/23/22) Family History Family History Father Family history of arthritis Hypertension Family history of Parkinson's disease Mother Family history of arthritis Family history of elevated blood lipids Sibling Family history of seizure disorder Family history of arthritis Grandparent Depression Family history of malignant neoplasm Family history of Parkinson's disease Other Family history of congenital heart disease Social History Social History Smoking status: Never smoker Second hand tobacco smoke exposure: No Additional smoking assessment comments: DENIES ANY FORM OF TOBACCO USE Alcohol intake: current Drinks per week: 1 Substance use: never Substance use type: former substance user Lack of Transportation: No Lack of Food: Never True Current Housing: I Have Housing Concerned About Future Housing: No Difficulty Paying Gas/Electric Bills: No Difficulty Paying for Meds: No Currently Unemployed: No Education: Associate Degree Difficulty w/ Childcare or Family Care: No Living arrangements: with family Additional living arrangements comments: Occupation/Education: retired Gender identity (if verbalized by the patient): Female Spiritual care concerns: No Anes - Eval Final PreProcedure Day of Procedure 12/14/22 06:45 Patient weight: overweight Heart: regular rate and rhythm Lungs: clear to auscultation Airway: Mallampati scale class II Neurological: alert and oriented Last oral intake: >/= 8 hours ASA classification: II Emergent: no Anesthetic plan: proceed Anesthesia type and monitoring: general LMA and standard monitoring Results Review: All pre-operative results and documents have been reviewed as part of the pre-operative evaluation. Informed Consent: The patient's anesthetic plan and its attendant risks and benefits were discussed with the patient/family/POA. Questions were solicited and answers provided to the satisfaction of the patient/family/POA.
[2022-12-14] MEDS: LACTATED RINGERS 1,000 ML 30 ML IV CONT ×2 (06:50→09:59)
--- NOTE | 2022-12-14 06:54 | WPDANESPNB ---
Anes - Peripheral Nerve Block Date/Time: 12/14/22 06:54 I have discussed with the patient/family/POA the placement of a peripheral nerve block for post-operative pain management, including associated risks, benefits, complications, and side effects. Alternative methods of post-operative analgesia were detailed. Questions were solicited and answers provided to the satisfaction of the patient/family/POA. Time-Out: A pre-procedural Time-Out was completed immediately before starting the procedure and confirmed: Patient Identification, Site, Procedure, Patient Position and the Availability of Requisite Equipment. Clinical Indications: Acute post-operative pain management requested by the operative surgeon. Nerve Block Insertion Note Anes-nerve block: adductor canal left Patient position: supine Skin prep: chlorhexidine Needle: 22 gauge, stimulating, insulated echogenic needle. Needle length: 80 mm Technique: ultrasound Injectate: bupivacaine 0.5% with epi 5 mcg/ml (30cc - no epi) Observations: tolerated well Complications: none Procedure start time:: 717 Procedure end time:: 720
[2022-12-14] MEDS: ACETAMINOPHEN 500 MG TABLET 1000 MG PO (06:55)
[2022-12-14] MEDS: TRANEXAMIC ACID 1,000MG/ISO100 1,000 MG/100 ML BAG 200 MG IVPB (06:56)
--- NOTE | 2022-12-14 07:14 | WPDHPUPDATE1 ---
History and Physical Update Update Date/Time: 12/14/22 07:14 History and Physical has been reviewed, including an updated exam of the patient. There are NO changes in the patient's condition. Risks, benefits, and alternatives have been discussed and questions answered. Patient agrees to proceed with procedure.
[2022-12-14] MEDS: ceFAZolin 2 GM/D5W 50 ML 2 GM/50 ML BAG IVPB (07:29)
[2022-12-14] MEDS: GENTAMICIN BONE CEMENT REFOBACIN 1 EACH TOPICAL (08:07)
--- NOTE | 2022-12-14 10:24 | W.PM.PROC2 ---
Procedure Note - Detailed Date of Procedure 12/14/22 Pre-op Diagnosis primary OA left knee Post-op Diagnosis Same Procedure Performed Total knee arthroplasty, left. Surgeon Uvaldo Flowers MD Anesthesia General and Regional (Subsartorial block.) Findings Moderate medial release. Good bone quality. Description of Procedure Preoperative antibiotics were given. The limb was prepped and draped in the usual sterile fashion with a well-padded tourniquet high on the thigh. The limb was exsanguinated and the tourniquet inflated to 300 mmHg. A longitudinal incision was created just medial to the patella. A trivector approach to the knee was performed. Arthrotomy was taken down through the joint capsule. No significant releases were initially taken. The femur was exposed and the F1 jig was applied. The coring tool was used to remove the cartilage for the F2 jig to sit flush with the bone. The jig was pinned and the distal cut carefully taken. Caliper measurements confirmed appropriate bony resections according to the preoperative templated plan. The F4 cutting jig for the femur was applied, at the standard rotation. The AP and anterior chamfer cuts were taken. The F5 jig was applied and the posterior chamfer cuts were taken. The tibia was prepared using the T1 jig, after removing cartilage for the jig contact points. Proper alignment was checked with the alignment enid. The tibia was cut using the T1u guide. Gap balancing was performed. Gap measurements were taken and the knee was trialed. Excellent alignment and soft tissue balancing was confirmed. The posterior cruciate ligament was recessed along the proximal tibia. The patella was cut for resurfacing. Three lug holes were drilled. Meniscal remnants were removed. The trial components were assembled. Excellent range of motion and proper soft tissue balancing were confirmed throughout the full range of motion. Patellar tracking was excellent. The knee was copiously irrigated periodically throughout the procedure. The real implants were cemented into position. Excess cement was carefully removed. The wound was closed in layers with interrupted #1 Vicryl suture, #2 strata fix suture, 2-0 strata fix suture, 3-0 strata fix suture. Steri-Strips placed on the skin with the knee flexed. Sterile bulky dressing applied. The patient was brought to the recovery room in stable condition. There were no complications. Implants [employer] total knee arthroplasty. Cemented. Cruciate retaining. 7 mm insert. 35 mm oval patella. Estimated Blood Loss -50.0 Drains No Complications No immediate complications Condition Stable Disposition PACU [facility] Billing Surgery - Charge Forward: Surgery Billing
[2022-12-14] MEDS: fentaNYL CITRATE INJ (*CRX) 100 MCG/2 ML VIAL 25 MCG IV PUSH ×3 (10:30→10:58)
--- NOTE | 2022-12-14 10:30 | SUR.PHASEI ---
xrays of left knee done 100
--- NOTE | 2022-12-14 11:57 | PC.NURSE ---
This patient, Tisha Cedeno, was admitted to [facility] Surg Room 305-02 on 12/14/2022 @ 1155. Patient/family oriented to hospital policies and general routines including ID bracelet, bed and alarms, visiting hours, pain management, procedures, bathroom and other care routines, personal items, smoking policy, room service/diet, and visiting hours. Information on how to activate the Rapid Response Team has been discussed. Patient/Family are encouraged to report perceived risks to care and to ask questions if they do not understand what they are told or what they should do.
[2022-12-14] MEDS: ceFAZolin 1 GM/NS 50 ML 1 GM/50 ML BAG IVPB ×2 (15:17→22:19)
--- NOTE | 2022-12-14 16:04 | PCPTNOTE ---
On 12/14/22, the student, [Shante Perez], provided care and completed [facility] documentation on this patient. I have reviewed the student's documentation and agree with the findings.
[2022-12-14] MEDS: ASPIRIN 81 MG ENTERIC TABLET PO (17:53)
[2022-12-14] MEDS: SENNA/DOCUSATE SODIUM TABLET 2 TAB PO (17:53)
[2022-12-14] MEDS: rOPINIRole HCL 1 MG TABLET 2 MG PO (18:27)
[2022-12-14] MEDS: oxyCODONE HCL (*CRX) 5 MG TAB IR PO (20:11)
[2022-12-14] MEDS: oxyCODONE HCL (*CRX) 5 MG TAB IR 10 MG PO (23:31)
[2022-12-15 00:11] VITALS: BP 123/65; PULSE 77; RESP 16; TEMP 36.8; O2SAT 100
[2022-12-15 05:37] VITALS: BP 130/64; PULSE 80; RESP 14; TEMP 36.3; O2SAT 99
[2022-12-15] MEDS: ceFAZolin 1 GM/NS 50 ML 1 GM/50 ML BAG IVPB (06:24)
[2022-12-15 06:29] LABS: Basophils Percent Auto 0.3 % (0.2-1.2); Eosinophils Percent Auto 0.1 % (0-4.4); Hematocrit 33.8 % (37.0-47.0); Hemoglobin 11.4 g/dL (12.0-15.0); Immature Granulocyte Absolute 0.02 K/mm3 (0.00-0.031); Immature Granulocyte Percent A 0.3 % (0-0.5); Lymphocytes Absolute Auto 1.77 K/mm3 (0.9-3.2); Lymphocytes Percent Auto 22.7 % (18.3-44.2); Mean Corpuscular HGB Conc 33.7 g/dl (32-36); Mean Corpuscular Hemoglobin 30.1 pg (26-34); Mean Corpuscular Volume 89.2 fl (80-100); Mean Platelet Volume 10.3 fl (7.4-10.4); Monocytes Absolute Auto 0.8 K/mm3 (0.1-0.6); Monocytes Percent Auto 10.3 % (2.6-8.5); Neutrophils Absolute Auto 5.2 K/mm3 (1.3-6.7); Neutrophils Percent Auto 66.3 % (45.5-73.1); Platelet Count Result 186 k/mm3 (150-375); Red Blood Count 3.79 M/mm3 (4.2-5.4); Red Cell Distribution Width 11.9 % (11.5-14.5); White Blood Count 7.8 K/mm3 (4.5-10.0)
[2022-12-15] MEDS: oxyCODONE HCL (*CRX) 5 MG TAB IR PO (06:37)
[2022-12-15 06:42] LABS: Anion Gap 4 mmol/L (8-16); Blood Urea Nitrogen 12 mg/dL (7-17); Calcium 8.2 mg/dL (8.4-10.2); Carbon Dioxide 29 mmol/L (22-30); Chloride 103 mmol/L (98-107); Estimated CRCL calculation 78 ml/min; Estimated Glomerular Filt Rate > 60; Glucose 102 mg/dL (65-110); Potassium 3.6 mmol/L (3.4-5.0); Sodium 136 mmol/L (137-145)
[2022-12-15] MEDS: CYCLOBENZAPRINE HCL 5 MG TABLET PO (08:35)
[2022-12-15] MEDS: MULTIVITAMINS THERAPEUTIC TAB (*BKC) 1 TABLET PO (08:36)
[2022-12-15] MEDS: SENNA/DOCUSATE SODIUM TABLET 2 TAB PO (08:36)
[2022-12-15] MEDS: LOSARTAN POTASSIUM 25 MG TABLET PO (08:36)
[2022-12-15] MEDS: predniSONE 5 MG TABLET PO (08:36)
[2022-12-15] MEDS: ASPIRIN 81 MG ENTERIC TABLET PO (08:36)
[2022-12-15] MEDS: polyethylene glycoL 3350 17 GM POWD.PACK PO (08:37)
[2022-12-15] MEDS: ATORVASTATIN 20 MG TABLET PO (08:37)
== END 2022-12-15 11:20 | disposition home or self-care (01) ==
LOC: ANHSURGERY 10:24 → ANH3MEDSUR 11:55
PROVIDERS: PCP Family Medicine; Visit Provider Orthopaedic Surgery
PROC: (CPT 27447; principal; 2022-12-14 07:30)
DX: M17.12 Unilateral primary osteoarthritis, left knee (principal); G89.18 Other acute postprocedural pain; I10 Essential (primary) hypertension; E78.5 Hyperlipidemia, unspecified; I45.10 Unspecified right bundle-branch block; R16.0 Hepatomegaly, not elsewhere classified; G25.81 Restless legs syndrome
CPT/HCPCS: 27447; 64447; 36415; 73560; 80048; 85025; 97110; 97161; 97165; 97530; 97535; A9270; C1713; C1776; J0171; J0690; J1100; J1885; J2250; J2270; J2370; J2405; J2704; J2795; J3010; J7120; J7512

== ENCOUNTER → 2022-12-27 11:00 | Outpatient (CLI) | payer MEDICARE, SELFPAY ==
--- NOTE | ~2022-12-27 | DEXA_ITS ---
Bone Density Report Name: MAITE MAGANA Age: 67 Sex: Female Ethnicity: White Date of : 1955 Indication: osteopenia; parental hip fracture; postmenopausal Referring Provider: Allison Cruz Study: Bone densitometry was performed. Exam Date: December 27, 2022 Accession number: [id number] Bone Density: Region BMD T-score Z-score Classification AP Spine (L1, L3, L4) 0.920 -1.2 0.7 Osteopenia Femoral Neck (Left) 0.763 -0.8 0.8 Normal Total Hip (Left) 0.963 0.2 1.5 Normal Femoral Neck (Right) 0.925 0.7 2.3 Normal Total Hip (Right) 0.886 -0.5 0.9 Normal Total Hip Mean 0.925 -0.2 1.2 Normal World Health Organization criteria for BMD impression classify patients as: Normal (T-score at or above -1.0), Osteopenia (T-score between -1.0 and -2.5), or Osteoporosis (T-score at or below -2.5). 10-year Fracture Risk(1): Major Osteoporotic Fracture 14% Hip Fracture 0.7% Reported Risk Factors: [place] (), Neck BMD=0.763, BMI=29.6, parental fracture (1) FRAX(R) Version 3.08. Fracture probability calculated for an untreated patient. Fracture probability may be lower if the patient has received treatment. Previous Exams: Region Exam Age BMD T-score BMD Change BMD Change Date g/cm2 vs Baseline vs Previous AP Spine(L1, L3, L4) 12/27/2022 67 0.920 -1.2 0.013 0.013 11/24/2018 63 0.908 -1.3 Total Hip(Left) 12/27/2022 67 0.963 0.2 -0.065* -0.065* 11/24/2018 63 1.028 0.7 Total Hip(Right) 12/27/2022 67 0.886 -0.5 -0.039* -0.039* 11/24/2018 63 0.925 -0.1 *Denotes significance at 95% confidence level, LSC for AP Spine = 0.022 g/cm2, LSC for Total Hip = 0.027 g/cm2 Clinical Information Provided by Patient: Parent has had a hip fracture Patient maximum height was 64 Menopause Age: 53 No regular weight bearing exercise Drinks caffeinated beverages Onset of menses at age 12 Number of children 2 Impression: The patient has low bone mass, based on the Total Spine T-score. The patient has an estimated ten-year risk of hip fracture of 0.7% and an estimated ten-year risk of major fracture of 14%, based on the WHO FRAX algorithm. The patient has risk factors, including: parental hip fracture. The BMD for the Total Hip(Left) decreased, changing by -0.065 since the last DXA exam. The BMD for the Total Hip(Right) decreased, changing by -0.039 since the last DXA exam. Discussion
--- NOTE | ~2022-12-27 | MM_ITS ---
EXAMINATION: MM screening [facility] BI w christophe HISTORY: Screening mammogram TECHNIQUE: Craniocaudal and mediolateral oblique 3-D tomosynthesis images were obtained and synthetic 2-D images were generated. CAD analysis was submitted and interpreted. COMPARISON: 12/03/2021 bilateral screening mammogram BREAST PARENCHYMAL COMPOSITION: There are scattered areas of fibroglandular density. FINDINGS: Left breast: There is no evidence of suspicious mass, calcification, or architectural distortion to s uggest malignancy in the left breast. There has been no suspicious interval change. Right breast: There is mild asymmetric density in the subareolar area of the right breast. Diagnostic right mammogram and right breast ultrasound examination are recommended. IMPRESSION: 1. Right breast mammographic asymmetry in subareolar area 2. Diagnostic right mammogram and right breast ultrasound are recommended BI-RADS Category 0: Incomplete: Needs additional imaging evaluation. Reviewed, dictated and finalized at location A.
== END ==
PROVIDERS: PCP Family Medicine; Visit Provider Nurse Practitioner
DX: Z12.31 Encounter for screening mammogram for malignant neoplasm of breast (principal); R92.8 Other abnormal and inconclusive findings on diagnostic imaging of breast; Z78.0 Asymptomatic menopausal state
CPT/HCPCS: 77063; 77067; 77080

== ENCOUNTER → 2023-01-25 09:48 | Outpatient (CLI) | payer MEDICARE, SELFPAY ==
--- NOTE | ~2023-01-25 | MMUS_ITS ---
EXAMINATION: MM diagnostic miry[facility] RT w christophe, US breast RT limited HISTORY: Right subareolar mammographic asymmetry on 12/27/2022 screening mammogram TECHNIQUE: Additional 3-D tomosynthesis images of the right breast were performed and synthetic 2-D i mages were generated. CAD analysis was submitted and interpreted. High resolution right subareolar br east ultrasound was performed. COMPARISON: 12/27/2022, 11/23/2021 bilateral screening mammogram examinations FINDINGS: MAMMOGRAPHIC FINDINGS: No reproducible suspicious mass or architectural distortion is evident. No skin thickening or retract ion. ULTRASOUND: There is a 2.3 x 3.6 x 2.5 mm circumscribed hypoechoic area in the right subareolar area, without int ernal vascularity or posterior shadowing. This is probably benign. Six-month follow-up examination is recommended. IMPRESSION: 1. Probable benign finding 2. 6 month diagnostic right mammogram and targeted right subareolar ultrasound follow-up are recommen ded. BI-RADS category 3, probably benign findings. Reviewed, dictated and finalized at location A. IMPRESSION: 1. Probable benign finding 2. 6 month diagnostic right mammogram and targeted right subareolar ultrasound follow-up are recommended. BI-RADS category 3, probably benign findings.
== END ==
PROVIDERS: PCP Family Medicine; Visit Provider Family Medicine
DX: R92.8 Other abnormal and inconclusive findings on diagnostic imaging of breast (principal); N63.10 Unspecified lump in the right breast, unspecified quadrant
CPT/HCPCS: 76642; 77061; 77065; G0279

== ENCOUNTER 2023-03-24 10:55 | Outpatient (CLI) | payer MEDICARE, SELFPAY ==
[2023-03-24 19:07] LABS: Alanine Aminotransferase 24 U/L (6-35); Albumin Level 4.1 g/dL (3.5-5.1); Alkaline Phosphatase 74 U/L (38-126); Aspartate Amino Transferase 39 U/L (14-36); Bilirubin,Total 1.1 mg/dL (0.2-1.3); Blood Urea Nitrogen 12 mg/dL (7-17); Calcium 9.3 mg/dL (8.4-10.2); Carbon Dioxide > 40 mmol/L (22-30); Chloride 104 mmol/L (98-107); Estimated Glomerular Filt Rate > 60; Glucose 93 mg/dL (65-110); Potassium 4.5 mmol/L (3.4-5.0); Sodium 139 mmol/L (137-145)
== END 2023-03-24 10:56 | disposition home or self-care (01) ==
PROVIDERS: PCP Family Medicine; Visit Provider Family Medicine
DX: E78.5 Hyperlipidemia, unspecified (principal); I10 Essential (primary) hypertension
CPT/HCPCS: 36415; 80053

== ENCOUNTER → 2023-08-30 14:14 | Outpatient (CLI) | payer MEDICARE, SELFPAY ==
--- NOTE | ~2023-08-30 | MMUS_ITS ---
EXAMINATION: MM diagnostic miryam RT w christophe, US breast RT limited HISTORY: Six-month follow-up for probably benign subareolar right breast mass TECHNIQUE: Craniocaudal, mediolateral, and mediolateral oblique 3-D tomosynthesis images of the right breast were performed and synthetic 2-D images were generated. CAD analysis was submitted and interp reted. High resolution limited right breast ultrasound was performed. COMPARISON: 01/25/2023, 12/27/2022, 11/23/2021 BREAST PARENCHYMAL COMPOSITION: There are scattered areas of fibroglandular density. FINDINGS: MAMMOGRAPHIC FINDINGS: No suspicious mass, calcification, or architectural distortion are identified to suggest malignancy. There has been no suspicious interval change. No mammographic correlate is identified for the sonogra phic abnormalities detected on the comparison examination. ULTRASOUND: The previously described subareolar right breast mass is no longer identified. IMPRESSION: 1. Interval resolution of the previously described subareolar right breast mass. 2. Recommend routine screening mammography, due in December. BI-RADS Category 1: Negative Reviewed, dictated and finalized at location A. DOCUMENTS CLOSER IMPRESSION: 1. Interval resolution of the previously described subareolar right breast mass . 2. Recommend routine screening mammography, due in December. BI-RADS Category 1: Negative
== END ==
PROVIDERS: PCP Family Medicine; Visit Provider Family Medicine
DX: N63.10 Unspecified lump in the right breast, unspecified quadrant (principal); R92.8 Other abnormal and inconclusive findings on diagnostic imaging of breast
CPT/HCPCS: 76642; 77061; 77065; G0279

== ENCOUNTER 2023-10-07 10:35 | Outpatient (CLI) | payer MEDICARE, SELFPAY ==
--- NOTE | ~2023-10-07 | XR_ITS ---
Right Shoulder Technique: AP and axillary views were obtained. Clinical History: Pain Findings: No fracture or dislocation is seen. Osseous alignment is anatomic. The glenohumeral and acr omioclavicular joint spaces are preserved. Soft tissues are unremarkable. Impression: Unremarkable right shoulder radiographs. Reviewed, dictated and finalized at [facility]. Impression: Unremarkable right shoulder radiographs.
== END 2023-10-07 10:36 ==
PROVIDERS: PCP Family Medicine; Visit Provider Family Medicine
DX: M25.511 Pain in right shoulder (principal)
CPT/HCPCS: 73030

== ENCOUNTER 2024-01-25 14:43 | Outpatient (CLI) | payer MEDICARE, SELFPAY ==
--- NOTE | ~2024-01-25 | MR_ITS ---
EXAMINATION: MR shoulder RT wo con DATE: 01/25/2024 15:24 INDICATION: Chronic right shoulder pain TECHNIQUE: Magnetic resonance imaging (MRI) of the right shoulder was performed without intravenous c ontrast. Sequences included axial PD-weighted FS FSE, coronal oblique PD-weighted FS FSE, coronal obl ique T2-weighted FS FSE, sagittal PD-weighted FS FSE, and sagittal T1-weighted SE. COMPARISON: None. FINDINGS: Coracoacromial arch: The acromion undersurface is curved in morphology (type II). The coracoacromial ligament is normal. M ild acromioclavicular osteoarthritis. Rotator cuff: Mild supraspinatus tendinopathy. There is focal increased signal of less than fluid intensity at the distal aspect of the central supraspinatus tendon but with subtle flattening of the bursal sided cont our of the tendon suggesting this represents a very small intrasubstance tear with secondary mild att enuation of the distalmost tendon. The infraspinatus and teres minor tendons are normal. Mild subsca pularis tendinopathy without tear. Normal rotator cuff muscle bulk and signal. Biceps tendon, glenoid labrum and glenohumeral cartilage: Long head of the biceps tendon is normal. There is a diffuse labral tear with labral cyst measuring u p to 5 x 4 mm in maximal transaxial dimensions which extends 1.3 cm craniocaudally along the peripher y of the 7:00-9:00 position of the posterior inferior glenoid labrum. There is some traction separati ng the superior labrum from the rim of the glenoid with fluid filled cleft measuring up to 2 mm thick ness between the base of the labrum and the glenoid. 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 There is additional deep chondral ulceration which appears full/near fu ll-thickness but without degenerative subchondral changes at the superomedial aspect of the humeral h ead which measures 1.5 cm AP and 1.3 cm craniocaudally. Fluid: Physiologic amount of fluid in the glenohumeral joint and biceps tendon sheath. No loose osteochondr al bodies. Small amount of fluid in the subacromial/subdeltoid bursa consistent with mild bursitis. Bones: Bone alignment is normal. No fracture or pathologic marrow replacing process. IMPRESSION: 1. Diffuse tearing of the right glenoid labrum with prior labral cyst along the periphery of the post erior to posterior inferior labrum. Line 2. Associated mild glenohumeral osteoarthritis but with regions of high-grade chondromalacia along th e inferior to anteroinferior glenoid and at the superomedial aspect of the humeral head. 3. Mild supraspinatus and subscapularis tendinopathy with likely very small intrasubstance tear at th e distalmost central supraspinatus suggested by subtle attenuation and flattening of the bursal surfa ce of the tendon near its insertion. 4. Mild acromioclavicular osteoarthritis with mild underlying subacromial/subdeltoid bursitis. Reviewed, dictated and finalized at location A. IMPRESSION: 1. Diffuse tearing of the right glenoid labrum with prior labral cyst along the periphery of the posterior to posterior inferior labrum. Line 2. Associated mild glenohumeral osteoarthritis but with regions of high-grade c hondromalacia along the inferior to anteroinferior glenoid and at the superomed ial aspect of the humeral head. 3. Mild supraspinatus and subscapularis tendinopathy with likely very small int rasubstance tear at the distalmost central supraspinatus suggested by subtle at tenuation and flattening of the bursal surface of the tendon near its insertion . 4. Mild acromioclavicular osteoarthritis with mild underlying subacromial/subde ltoid bursitis.
== END 2024-01-25 14:44 ==
LOC: MICIMG 14:44
PROVIDERS: PCP Family Medicine; Visit Provider Orthopaedic Surgery
DX: M25.511 Pain in right shoulder (principal); G89.29 Other chronic pain; S43.431A Superior glenoid labrum lesion of right shoulder, initial encounter; M19.011 Primary osteoarthritis, right shoulder; M94.211 Chondromalacia, right shoulder; M75.51 Bursitis of right shoulder
CPT/HCPCS: 73221

== ENCOUNTER 2024-02-11 08:16 | Outpatient (CLI) | payer MEDICARE, SELFPAY ==
--- NOTE | ~2024-02-11 | MM_ITS ---
EXAMINATION: MM screening miryam BI w christophe HISTORY: Screening TECHNIQUE: Craniocaudal and mediolateral oblique 3-D tomosynthesis images were obtained and synthetic 2-D images were generated. CAD analysis was submitted and interpreted. COMPARISON: Comparison to multiple prior studies sequentially, with oldest reviewed study dated 03/2022. BREAST PARENCHYMAL COMPOSITION: Not dense: There are scattered areas of fibroglandular density. FINDINGS: There is no evidence of suspicious mass, calcification, or architectural distortion to sugg est malignancy in either breast. There has been no suspicious interval change. IMPRESSION: 1. No mammographic evidence of malignancy. 2. Recommend routine screening mammography in one year. BI-RADS Category 1: Negative Reviewed, dictated and finalized at location B.
== END 2024-02-11 08:17 ==
LOC: MICIMG 08:17
PROVIDERS: PCP Family Medicine; Visit Provider Family Medicine
DX: Z12.31 Encounter for screening mammogram for malignant neoplasm of breast (principal)
CPT/HCPCS: 77063; 77067

== ENCOUNTER 2024-04-11 13:17 | Outpatient (CLI) | payer MEDICARE, SELFPAY ==
[2024-04-11 19:40] LABS: Alanine Aminotransferase 23 U/L (6-35); Albumin Level 4.2 g/dL (3.5-5.1); Alkaline Phosphatase 72 U/L (38-126); Anion Gap 6 mmol/L (4-12); Aspartate Amino Transferase 45 U/L (14-36); Bilirubin,Total 1.6 mg/dL (0.2-1.3); Blood Urea Nitrogen 13 mg/dL (7-17); Calcium 9.3 mg/dL (8.4-10.2); Carbon Dioxide 28 mmol/L (22-30); Chloride 102 mmol/L (98-107); Estimated Glomerular Filt Rate > 60; Glucose 81 mg/dL (65-110); Sodium 136 mmol/L (137-145)
== END 2024-04-11 13:18 | disposition home or self-care (01) ==
PROVIDERS: PCP Family Medicine; Visit Provider Family Medicine
DX: E78.5 Hyperlipidemia, unspecified (principal); I10 Essential (primary) hypertension
CPT/HCPCS: 36415; 80053

== ENCOUNTER 2024-10-18 11:11 | Outpatient (CLI) | payer MEDICARE, SELFPAY ==
--- NOTE | ~2024-10-18 | XR_ITS ---
Right Hand Technique: PA, oblique, and lateral views were obtained. Clinical History: Pain Findings: No acute fracture or dislocation is seen. Osseous alignment is anatomic. Joint spaces are p reserved. Soft tissues are unremarkable. Impression: Unremarkable right hand. Reviewed, dictated and finalized at location M. Impression: Unremarkable right hand.
== END 2024-10-18 11:12 | disposition home or self-care (01) ==
LOC: GOSHIMG 11:12
PROVIDERS: PCP Family Medicine; Visit Provider Family Medicine
DX: M79.644 Pain in right finger(s) (principal); M25.541 Pain in joints of right hand; G89.29 Other chronic pain
CPT/HCPCS: 73130